=== PATIENT | female | born 2000 | race Two or more races ===

== ENCOUNTER 2020-10-27 04:55 | Emergency (ER) | payer MEDICAID, OTHER ==
[~2020-10-27] VITALS: Ht 170.2 cm; Wt 104.3 kg
[2020-10-27 04:58] VITALS: BP 123/83
== END 2020-10-27 05:56 | disposition left against medical advice (07) ==
LOC: ER 04:55
DX: N89.8 Other specified noninflammatory disorders of vagina (principal); Z53.21 Procedure and treatment not carried out due to patient leaving prior to being seen by health care provider